=== PATIENT | male | born 1970 | race Caucasian/White ===

== ENCOUNTER 2016-12-25 01:13 | Inpatient (IN) | payer SELFPAY ==
[~2016-12-25] VITALS: Ht 180.3 cm; Wt 117.7 kg
[2016-12-25] VITALS (19 sets, daily range): BP systolic 108–168; BP diastolic 59–100
[~2016-12-25 01:13] MED LIST: ASPI325T8 PO; ATOR40TA59 PO; BUDE10.2 IH; CARV25TA2 PO; MULT1TAB52 PO; OMEP40CA5 PO
[2016-12-25 03:58] LABS: HCO3 ABG 20 mmol/L (21-28); PCO2 ABG 45 mmHg (35-46); PH ABG 7.27 (7.35-7.45); PO2 ABG 196 mmHg (75-108); SAT O2 ABG 99 % (92-99)
--- NOTE | 2016-12-25 04:00 | RAD ---
Chest AP portable at 03 30: Reason for examination: NG tube and endotracheal tube placement. Endotracheal tube is present with the tip approximately 2.6 cm above the jacquie. NG tube is present and extends into the stomach however the tip is in the region of the midesophagus. Postoperative changes are seen in the sternum. Heart and mediastinum are otherwise unremarkable. Lung martinez are clear. No acute bony abnormalities are seen. IMPRESSION: Endotracheal tube in satisfactory position. NG tube extends into the stomach however the tip of the NG tube is in the midesophagus. Recommend repositioning of NG tube. KUB: NG tube extends into the stomach however the tip of the NG tube is in the region of the midesophagus. There is no gross organomegaly. Psoas muscles are symmetric. The bowel gas pattern is nonspecific. No acute bony abnormalities are seen. IMPRESSION: NG tube is present in the stomach however the tip of the NG tube is still in the region of the mid esophagus. Repositioning is recommended. Electronically signed by: Laila Gibbons MD (12/25/2016 3:56 AM)
[2016-12-25 05:13] LABS: FIO2 ABG 60
[2016-12-25] MEDS ORDERED: ONDANSETRON PF 4 MG/2 ML VIAL. IV PRN (05:15)
[2016-12-25 05:24] LABS: BASO % 0 % (0-3); EOS % 1 % (0-3); HEMATOCRIT 44.3 % (39.0-53.0); HEMOGLOBIN 14.7 g/dL (13.0-17.5); LYMPH % 26 % (24-48); MEAN CORPUSCULAR HEMOGLOBIN 31 pg (25-35); MEAN CORPUSCULAR HGB CONC 33 g/dL (31-37); MEAN CORPUSCULAR VOLUME 93 fL (79-100); MONO % 6 % (0-9); NEUT % 66 % (31-73); PLATELET COUNT 194 x10^3/uL (140-400); RED BLOOD COUNT 4.78 x10^6/uL (4.30-5.70); RED CELL DISTRIBUTION WIDTH 14.5 % (11.5-14.5); WHITE BLOOD COUNT 11.5 x10^3/uL (4.0-11.0)
[2016-12-25] MEDS: PROPOFOL 100 ML IV PRN ×2 (05:48→09:44)
[2016-12-25 06:05] LABS: ALBUMIN 3.6 g/dL (3.4-5.0); ALBUMIN/GLOBULIN RATIO 0.9 (1.0-1.7); CALCIUM 7.6 mg/dL (8.5-10.1); CREATININE 0.7 mg/dL (0.7-1.3); POTASSIUM 3.9 mmol/L (3.5-5.1); TOTAL BILIRUBIN 0.3 mg/dL (0.2-1.0); TOTAL PROTEIN 7.4 g/dL (6.4-8.2)
--- NOTE | 2016-12-25 06:51 | RAD ---
KUB: Reason for examination: Repositioning NG tube. NG tube is present with the tip and side port within the stomach. There is no gross organomegaly. Psoas muscles are symmetric. The bowel gas pattern is nonspecific. No acute bony abnormalities are evident. IMPRESSION: NG tube with the tip and side-port within the stomach. Nonspecific bowel gas pattern. Electronically signed by: Laila Gibbons MD (12/25/2016 6:48 AM)
[2016-12-25] MEDS ORDERED: IV NORMAL SALINE 1000ML BAG 1,000 ML IV ONE (08:00)
[2016-12-25 08:03] LABS: HCO3 ABG 21 mmol/L (21-28); PCO2 ABG 43 mmHg (35-46); PO2 ABG 101 mmHg (75-108); SAT O2 ABG 97 % (92-99)
[2016-12-25 08:04] LABS: FIO2 ABG 40
[2016-12-25] MEDS ORDERED: ENOXAPARIN 40 MG/0.4 ML SYRINGE. SQ SCH (09:00)
[2016-12-25] MEDS ORDERED: MULTIVITAMIN with MINERAL TABLET. PO SCH (09:00)
[2016-12-25] MEDS ORDERED: CARVEDILOL 12.5 MG TABLET. PO SCH ×2 (09:00→17:00)
[2016-12-25] MEDS ORDERED: ASPIRIN 325 MG TABLET PO SCH (09:00)
[2016-12-25] MEDS ORDERED: FAMOTIDINE 20 MG/2 ML VIAL IVP SCH (09:00)
--- NOTE | 2016-12-25 10:56 | PDOC ---
PULMONARY PROGRESS NOTES Vitals Vital Signs Date Time Temp Pulse Resp B/P (MAP) Pulse Ox O2 Delivery O2 Flow Rate FiO2 12/25/16 09:43 66 134/74 12/25/16 09:00 100 Ventilator 12/25/16 06:00 16 12/25/16 03:00 97.6 97.6 General: Alert, No acute distress Lungs: Clear Cardiovascular: S1 Abdomen: Soft Extremities: No Edema Labs Laboratory Tests Test 12/25/16 03:19 12/25/16 05:00 12/25/16 07:47 O2 Saturation 99 % (92-99) 97 % (92-99) Arterial Blood pH 7.27 (7.35-7.45) 7.30 (7.35-7.45) Arterial Blood pCO2 at Patient Temp 45 mmHg (35-46) 43 mmHg (35-46) Arterial Blood pO2 at Patient Temp 196 mmHg (75-108) 101 mmHg (75-108) Arterial Blood HCO3 20 mmol/L (21-28) 21 mmol/L (21-28) Arterial Blood Base Excess -7 mmol/L (-3-3) -6 mmol/L (-3-3) FiO2 60 40 White Blood Count 11.5 x10^3/uL (4.0-11.0) Red Blood Count 4.78 x10^6/uL (4.30-5.70) Hemoglobin 14.7 g/dL (13.0-17.5) Hematocrit 44.3 % (39.0-53.0) Mean Corpuscular Volume 93 fL (79-100) Mean Corpuscular Hemoglobin 31 pg (25-35) Mean Corpuscular Hemoglobin Concent 33 g/dL (31-37) Red Cell Distribution Width 14.5 % (11.5-14.5) Platelet Count 194 x10^3/uL (140-400) Neutrophils (%) (Auto) 66 % (31-73) Lymphocytes (%) (Auto) 26 % (24-48) Monocytes (%) (Auto) 6 % (0-9) Eosinophils (%) (Auto) 1 % (0-3) Basophils (%) (Auto) 0 % (0-3) Neutrophils # (Auto) 7.6 x10^3uL (1.8-7.7) Lymphocytes # (Auto) 3.0 x10^3/uL (1.0-4.8) Monocytes # (Auto) 0.7 x10^3/uL (0.0-1.1) Eosinophils # (Auto) 0.2 x10^3/uL (0.0-0.7) Basophils # (Auto) 0.0 x10^3/uL (0.0-0.2) Sodium Level 141 mmol/L (136-145) Potassium Level 3.9 mmol/L (3.5-5.1) Chloride Level 107 mmol/L (98-107) Carbon Dioxide Level 21 mmol/L (21-32) Anion Gap 13 (6-14) Blood Urea Nitrogen 9 mg/dL (8-26) Creatinine 0.7 mg/dL (0.7-1.3) Estimated GFR (Cockcroft-Gault) 122.0 BUN/Creatinine Ratio 13 (6-20) Glucose Level 101 mg/dL (70-99) Lactic Acid Level 2.0 mmol/L (0.4-2.0) Calcium Level 7.6 mg/dL (8.5-10.1) Total Bilirubin 0.3 mg/dL (0.2-1.0) Aspartate Amino Transf (AST/SGOT) 43 U/L (15-37) Alanine Aminotransferase (ALT/SGPT) 40 U/L (16-63) Alkaline Phosphatase 78 U/L (46-116) Total Protein 7.4 g/dL (6.4-8.2) Albumin 3.6 g/dL (3.4-5.0) Albumin/Globulin Ratio 0.9 (1.0-1.7) Laboratory Tests Test 12/25/16 03:19 12/25/16 05:00 12/25/16 07:47 O2 Saturation 99 % (92-99) 97 % (92-99) Arterial Blood pH 7.27 (7.35-7.45) 7.30 (7.35-7.45) Arterial Blood pCO2 at Patient Temp 45 mmHg (35-46) 43 mmHg (35-46) Arterial Blood pO2 at Patient Temp 196 mmHg (75-108) 101 mmHg (75-108) Arterial Blood HCO3 20 mmol/L (21-28) 21 mmol/L (21-28) Arterial Blood Base Excess -7 mmol/L (-3-3) -6 mmol/L (-3-3) FiO2 60 40 White Blood Count 11.5 x10^3/uL (4.0-11.0) Red Blood Count 4.78 x10^6/uL (4.30-5.70) Hemoglobin 14.7 g/dL (13.0-17.5) Hematocrit 44.3 % (39.0-53.0) Mean Corpuscular Volume 93 fL (79-100) Mean Corpuscular Hemoglobin 31 pg (25-35) Mean Corpuscular Hemoglobin Concent 33 g/dL (31-37) Red Cell Distribution Width 14.5 % (11.5-14.5) Platelet Count 194 x10^3/uL (140-400) Neutrophils (%) (Auto) 66 % (31-73) Lymphocytes (%) (Auto) 26 % (24-48) Monocytes (%) (Auto) 6 % (0-9) Eosinophils (%) (Auto) 1 % (0-3) Basophils (%) (Auto) 0 % (0-3) Neutrophils # (Auto) 7.6 x10^3uL (1.8-7.7) Lymphocytes # (Auto) 3.0 x10^3/uL (1.0-4.8) Monocytes # (Auto) 0.7 x10^3/uL (0.0-1.1) Eosinophils # (Auto) 0.2 x10^3/uL (0.0-0.7) Basophils # (Auto) 0.0 x10^3/uL (0.0-0.2) Sodium Level 141 mmol/L (136-145) Potassium Level 3.9 mmol/L (3.5-5.1) Chloride Level 107 mmol/L (98-107) Carbon Dioxide Level 21 mmol/L (21-32) Anion Gap 13 (6-14) Blood Urea Nitrogen 9 mg/dL (8-26) Creatinine 0.7 mg/dL (0.7-1.3) Estimated GFR (Cockcroft-Gault) 122.0 BUN/Creatinine Ratio 13 (6-20) Glucose Level 101 mg/dL (70-99) Lactic Acid Level 2.0 mmol/L (0.4-2.0) Calcium Level 7.6 mg/dL (8.5-10.1) Total Bilirubin 0.3 mg/dL (0.2-1.0) Aspartate Amino Transf (AST/SGOT) 43 U/L (15-37) Alanine Aminotransferase (ALT/SGPT) 40 U/L (16-63) Alkaline Phosphatase 78 U/L (46-116) Total Protein 7.4 g/dL (6.4-8.2) Albumin 3.6 g/dL (3.4-5.0) Albumin/Globulin Ratio 0.9 (1.0-1.7) Medications Active Scripts Medications Dose Route/Sig Max Daily Dose Days Date Category Multivitamins (Multivitamin) 1 Each Tablet 1 Tab PO DAILY 11/13/15 Rx Atorvastatin Calcium 40 Mg Tablet 40 Mg PO HS 09/29/13 Reported Symbicort 160-4.5 Mcg Inhaler (Budesonide/Formoterol Fumarate) 10.2 Gm Hfa.aer.ad 10.2 Gm IH DAILY 09/29/13 Reported Carvedilol 25 Mg Tablet 25 Mg PO DAILY 09/29/13 Reported Omeprazole 40 Mg Capsule.dr 40 Mg PO DAILY 09/29/13 Reported Aspirin 325 Mg Tablet 325 Mg PO DAILY 09/29/13 Reported Impression . NOTE DICTATED RESP FAILURE SEC TO ETOH AND SEIZURES WILL AWAIT NEURO INPUT SUSPECT EXTUBATION IN HELADIO OLGUIN MD Dec 25, 2016 10:56
[2016-12-25] MEDS ORDERED: MULTIVIT INFUSN,ADULT 4,VIT K 10 ML, FOLIC ACID 1 MG, THIAMINE 100 MG in IV DEXTROSE 5 ... IV SCH (11:00)
--- NOTE | 2016-12-25 11:18 | PDOC1 ---
History and Physical Date of Admission Date of Admission DATE: 12/25/16 TIME: 11:08 Identification/Chief Complaint Chief Complaint seizure, etoh intox Problems: Source Source: Caregiver, Chart review History of Present Illness History of Present Illness 46 y.o male, hx obtained from chart and ER MD in [place]. Pt is intubated, no family at bedside. As per records, seized was found face on the ground, heavy etoh drinking vodka and beer 6 a day, etoh levels 189, lactate 3,2, VS and rest of labs ok, crea o,9 , LFTs mildly elevated. Did vomit, was agitated and belligerent at ER hence intubated for airway protection with the intoxication and confusion Seen in ICU, intubated, sedated, labs adelso ok ABG and CXR benign, NO ct head done at [facility], given hx SZ will do CT head -dw neuro Dw neuro, no AEDs, these are alcohol withdrawal sz Past Medical History Cardiovascular: HTN Pulmonary: Bronchitis, COPD Heme/Onc: Other Hepatobiliary: Other Psych: Addictions Endocrine: Other Past Surgical History Past Surgical History: Other Family History Family History: Heart Disease, Obesity Social History Smoke: No ALCOHOL: heavy Drugs: None Current Medications Current Medications Current Medications Famotidine (Pepcid) 20 mg BID IVP Last administered on 12/25/16 09:45; Start at 09:00 Enoxaparin Sodium (Lovenox 40mg Syringe) 40 mg Q24H SQ Last administered on 12/25 09:44; Start 12/25/16 at 09:00 Propofol 100 ml @ 0 mls/hr CONT PRN IV SEE I/O RECORD Last administered on 09:44; Start 12/25/16 at 05:15 Sodium Chloride 1,000 ml @ 100 mls/hr 1X ONCE IV Last administered on 05:49; Start 12/25/16 at 08:00; Stop 12/25/16 at 17:59 Ondansetron HCl (Zofran) 4 mg PRN Q6HRS PRN IV NAUSEA/VOMITING; Start 12/25/16 at 05:15 Lorazepam (Ativan) 2 mg PRN Q4HRS PRN IV ANXIETY / AGITATION; Start 12/25/16 at 05:15 Aspirin (Corina Aspirin) 325 mg DAILY PO Last administered on 12/25/16 09:44; Start 12/25/16 at 09:00 Atorvastatin Calcium (Lipitor) 40 mg HS PO ; Start 12/25/16 at 21:00 Carvedilol (Coreg) 25 mg DAILYWBKFT PO Last administered on 12/25/16 09:43; Start 12/25/16 at 09:00 Multivitamins (Thera M Plus) 1 tab DAILY PO Last administered on 12/25/16 09:44 ; Start 12/25/16 at 09:00 Multivitamins 10 ml/Folic Acid 1 mg/Thiamine HCl 100 mg/Dextrose/ Sodium Chloride 1,011.1 ml @ 100 mls/ hr DAILY IV ; Start 12/25/16 at 11:00 Active Scripts Active Multivitamins (Multivitamin) 1 Each Tablet 1 Tab PO DAILY Reported Atorvastatin Calcium 40 Mg Tablet 40 Mg PO HS Symbicort 160-4.5 Mcg Inhaler (Budesonide/Formoterol Fumarate) 10.2 Gm Hfa.aer.ad 10.2 Gm IH DAILY Carvedilol 25 Mg Tablet 25 Mg PO DAILY Omeprazole 40 Mg Capsule.dr 40 Mg PO DAILY Aspirin 325 Mg Tablet 325 Mg PO DAILY Allergies Allergies: Coded Allergies: Penicillins (Verified Allergy, Intermediate, 08/26/15) acetaminophen (Verified Allergy, Intermediate, 08/26/15) ROS Review of System intubated, sedated Physical Exam General: Other (sedated, intubated) HEENT: Atraumatic, PERRLA, EOMI Lungs: Clear to auscultation, Normal air movement Heart: S1S2, RRR, no thrills, no rubs, no gallops, no murmurs Cardiovascular: S1, S2 Abdomen: Normal bowel sounds, Soft, No tenderness, No hepatosplenomegaly, No masses Male Genitals Exam: normal genitalia, normal prostate Rectal Exam: not examined PELVIC: Nml ext genitalia Extremities: No clubbing, No cyanosis, No edema, Normal pulses, No tenderness/ swelling Skin: No rashes, No breakdown, No significant lesion Vitals Vitals Vital Signs Date Time Temp Pulse Resp B/P (MAP) Pulse Ox O2 Delivery O2 Flow Rate FiO2 12/25/16 10:58 100 Ventilator 12/25/16 09:43 66 134/74 12/25/16 06:00 16 12/25/16 03:00 97.6 97.6 Labs Labs Laboratory Tests Test 12/25/16 03:19 12/25/16 05:00 12/25/16 07:47 O2 Saturation 99 % (92-99) 97 % (92-99) Arterial Blood pH 7.27 (7.35-7.45) 7.30 (7.35-7.45) Arterial Blood pCO2 at Patient Temp 45 mmHg (35-46) 43 mmHg (35-46) Arterial Blood pO2 at Patient Temp 196 mmHg (75-108) 101 mmHg (75-108) Arterial Blood HCO3 20 mmol/L (21-28) 21 mmol/L (21-28) Arterial Blood Base Excess -7 mmol/L (-3-3) -6 mmol/L (-3-3) FiO2 60 40 White Blood Count 11.5 x10^3/uL (4.0-11.0) Red Blood Count 4.78 x10^6/uL (4.30-5.70) Hemoglobin 14.7 g/dL (13.0-17.5) Hematocrit 44.3 % (39.0-53.0) Mean Corpuscular Volume 93 fL (79-100) Mean Corpuscular Hemoglobin 31 pg (25-35) Mean Corpuscular Hemoglobin Concent 33 g/dL (31-37) Red Cell Distribution Width 14.5 % (11.5-14.5) Platelet Count 194 x10^3/uL (140-400) Neutrophils (%) (Auto) 66 % (31-73) Lymphocytes (%) (Auto) 26 % (24-48) Monocytes (%) (Auto) 6 % (0-9) Eosinophils (%) (Auto) 1 % (0-3) Basophils (%) (Auto) 0 % (0-3) Neutrophils # (Auto) 7.6 x10^3uL (1.8-7.7) Lymphocytes # (Auto) 3.0 x10^3/uL (1.0-4.8) Monocytes # (Auto) 0.7 x10^3/uL (0.0-1.1) Eosinophils # (Auto) 0.2 x10^3/uL (0.0-0.7) Basophils # (Auto) 0.0 x10^3/uL (0.0-0.2) Sodium Level 141 mmol/L (136-145) Potassium Level 3.9 mmol/L (3.5-5.1) Chloride Level 107 mmol/L (98-107) Carbon Dioxide Level 21 mmol/L (21-32) Anion Gap 13 (6-14) Blood Urea Nitrogen 9 mg/dL (8-26) Creatinine 0.7 mg/dL (0.7-1.3) Estimated GFR (Cockcroft-Gault) 122.0 BUN/Creatinine Ratio 13 (6-20) Glucose Level 101 mg/dL (70-99) Lactic Acid Level 2.0 mmol/L (0.4-2.0) Calcium Level 7.6 mg/dL (8.5-10.1) Total Bilirubin 0.3 mg/dL (0.2-1.0) Aspartate Amino Transf (AST/SGOT) 43 U/L (15-37) Alanine Aminotransferase (ALT/SGPT) 40 U/L (16-63) Alkaline Phosphatase 78 U/L (46-116) Total Protein 7.4 g/dL (6.4-8.2) Albumin 3.6 g/dL (3.4-5.0) Albumin/Globulin Ratio 0.9 (1.0-1.7) Laboratory Tests Test 12/25/16 03:19 12/25/16 05:00 12/25/16 07:47 O2 Saturation 99 % (92-99) 97 % (92-99) Arterial Blood pH 7.27 (7.35-7.45) 7.30 (7.35-7.45) Arterial Blood pCO2 at Patient Temp 45 mmHg (35-46) 43 mmHg (35-46) Arterial Blood pO2 at Patient Temp 196 mmHg (75-108) 101 mmHg (75-108) Arterial Blood HCO3 20 mmol/L (21-28) 21 mmol/L (21-28) Arterial Blood Base Excess -7 mmol/L (-3-3) -6 mmol/L (-3-3) FiO2 60 40 White Blood Count 11.5 x10^3/uL (4.0-11.0) Red Blood Count 4.78 x10^6/uL (4.30-5.70) Hemoglobin 14.7 g/dL (13.0-17.5) Hematocrit 44.3 % (39.0-53.0) Mean Corpuscular Volume 93 fL (79-100) Mean Corpuscular Hemoglobin 31 pg (25-35) Mean Corpuscular Hemoglobin Concent 33 g/dL (31-37) Red Cell Distribution Width 14.5 % (11.5-14.5) Platelet Count 194 x10^3/uL (140-400) Neutrophils (%) (Auto) 66 % (31-73) Lymphocytes (%) (Auto) 26 % (24-48) Monocytes (%) (Auto) 6 % (0-9) Eosinophils (%) (Auto) 1 % (0-3) Basophils (%) (Auto) 0 % (0-3) Neutrophils # (Auto) 7.6 x10^3uL (1.8-7.7) Lymphocytes # (Auto) 3.0 x10^3/uL (1.0-4.8) Monocytes # (Auto) 0.7 x10^3/uL (0.0-1.1) Eosinophils # (Auto) 0.2 x10^3/uL (0.0-0.7) Basophils # (Auto) 0.0 x10^3/uL (0.0-0.2) Sodium Level 141 mmol/L (136-145) Potassium Level 3.9 mmol/L (3.5-5.1) Chloride Level 107 mmol/L (98-107) Carbon Dioxide Level 21 mmol/L (21-32) Anion Gap 13 (6-14) Blood Urea Nitrogen 9 mg/dL (8-26) Creatinine 0.7 mg/dL (0.7-1.3) Estimated GFR (Cockcroft-Gault) 122.0 BUN/Creatinine Ratio 13 (6-20) Glucose Level 101 mg/dL (70-99) Lactic Acid Level 2.0 mmol/L (0.4-2.0) Calcium Level 7.6 mg/dL (8.5-10.1) Total Bilirubin 0.3 mg/dL (0.2-1.0) Aspartate Amino Transf (AST/SGOT) 43 U/L (15-37) Alanine Aminotransferase (ALT/SGPT) 40 U/L (16-63) Alkaline Phosphatase 78 U/L (46-116) Total Protein 7.4 g/dL (6.4-8.2) Albumin 3.6 g/dL (3.4-5.0) Albumin/Globulin Ratio 0.9 (1.0-1.7) VTE Prophylaxis Ordered VTE Prophylaxis Devices: Yes VTE Pharmacological Prophylaxi: Yes Assessment/Plan Assessment/Plan 1. Alcohol related SZ 2. Acute respi failure, intubated for airway protection given hx confusion and etoh intoxication 3. Overweight 4. Elevated lactate pOA, SIRS no sepsis 5. Fall PLAN: Admit ICU CT head dry now NEuro consulted - no AEDs DVt and pPI prophy VENt per pulmo HOme meds reviewed and renewed those needed Recheck lactate ISAAC Garcia MD Dec 25, 2016 11:17
[2016-12-25 12:07] LABS: HCO3 ABG 23 mmol/L (21-28); PCO2 ABG 44 mmHg (35-46); PH ABG 7.33 (7.35-7.45); PO2 ABG 98 mmHg (75-108); SAT O2 ABG 97 % (92-99)
[2016-12-25 12:10] LABS: FIO2 ABG 40
--- NOTE | 2016-12-25 12:12 | PDOC2 ---
NEUROLOGY CONSULT Date of Admission Date of Admission DATE: 12/25/16 TIME: 12:10 Reason for Consult Reason for Consult: Seizure Referring Physician Referring Physician: Dr. Roes PCP: Dr. Tee Source Source: Chart review, Patient History of Present Illness History of Present Illness The patient is a 46-year-old right-handed male brought to [facility] emergency department found passed out on the back porch. He was combative and required intubation. I saw him with a same presentation of alcohol intoxication, seizure , unresponsiveness requiring intubation. Imaging studies of the brain and electroencephalogram were negative, in December 2015. Patient is intubated and sedated and cannot give further history. Alcohol level was 189 in the [facility] emergency department. Imaging of the brain was not done this time. Impression: Alcoholism, alcohol intoxication, alcohol-related seizure Recommendations: Hold on anticonvulsants Agree with banana bag EEG MRI Counseled patient to stop drinking Past Medical History Cardiovascular: CAD, HTN, Other (angina, DVT) Pulmonary: COPD, Pneumonia, Other CENTRAL NERVOUS SYSTEM: Seizure (alcohol related), Other (numbness in fingers) GI: GERD Heme/Onc: Other (alcoholic fatty liver) Psych: Depression Renal/: Other (prostate nodules) Past Surgical History Past Surgical History: CABG, Hernia Repair (x4), Other (thoracic aortic aneursym repair, cardiac cath, right leg) Family History Family History: No pertinent hx Social History Social History Smokes, uses alcohol Current Medications Current Medications Current Medications Famotidine (Pepcid) 20 mg BID IVP Last administered on 12/25/16 09:45; Start at 09:00 Enoxaparin Sodium (Lovenox 40mg Syringe) 40 mg Q24H SQ Last administered on 12/25 09:44; Start 12/25/16 at 09:00 Propofol 100 ml @ 0 mls/hr CONT PRN IV SEE I/O RECORD Last administered on 09:44; Start 12/25/16 at 05:15 Sodium Chloride 1,000 ml @ 100 mls/hr 1X ONCE IV Last administered on 05:49; Start 12/25/16 at 08:00; Stop 12/25/16 at 17:59 Ondansetron HCl (Zofran) 4 mg PRN Q6HRS PRN IV NAUSEA/VOMITING; Start 12/25/16 at 05:15 Lorazepam (Ativan) 2 mg PRN Q4HRS PRN IV ANXIETY / AGITATION; Start 12/25/16 at 05:15 Aspirin (Corina Aspirin) 325 mg DAILY PO Last administered on 12/25/16 09:44; Start 12/25/16 at 09:00 Atorvastatin Calcium (Lipitor) 40 mg HS PO ; Start 12/25/16 at 21:00 Carvedilol (Coreg) 25 mg DAILYWBKFT PO Last administered on 12/25/16 09:43; Start 12/25/16 at 09:00 Multivitamins (Thera M Plus) 1 tab DAILY PO Last administered on 12/25/16 09:44 ; Start 12/25/16 at 09:00 Multivitamins 10 ml/Folic Acid 1 mg/Thiamine HCl 100 mg/Dextrose/ Sodium Chloride 1,011.1 ml @ 100 mls/ hr DAILY IV ; Start 12/25/16 at 11:00 Active Scripts Active Multivitamins (Multivitamin) 1 Each Tablet 1 Tab PO DAILY Reported Atorvastatin Calcium 40 Mg Tablet 40 Mg PO HS Symbicort 160-4.5 Mcg Inhaler (Budesonide/Formoterol Fumarate) 10.2 Gm Hfa.aer.ad 10.2 Gm IH DAILY Carvedilol 25 Mg Tablet 25 Mg PO DAILY Omeprazole 40 Mg Capsule.dr 40 Mg PO DAILY Aspirin 325 Mg Tablet 325 Mg PO DAILY Allergies Allergies: Coded Allergies: Penicillins (Verified Allergy, Intermediate, 08/26/15) acetaminophen (Verified Allergy, Intermediate, 08/26/15) ROS Review of System Unobtainable Physical Exam Physical Examination PHYSICAL EXAMINATION: Vital signs: see above. General appearance: intubated and sedation in the ICU HEENT: Normocephalic and nontraumatic. Eyes, nose, ears, and throat are unremarkable. Neck is supple. No lymphadenopathy. No bruits are heard over the carotid artery. No crepitus. NEUROLOGICAL EXAMINATION: The patient is intubated and sedated. Pupils do react to light. Reflexes are 1+ with silent plantar responses. He does not move to deep pain. Vitals VITALS Vital Signs Date Time Temp Pulse Resp B/P (MAP) Pulse Ox O2 Delivery O2 Flow Rate FiO2 12/25/16 11:51 100 Ventilator 12/25/16 09:43 66 134/74 12/25/16 06:00 16 12/25/16 03:00 97.6 97.6 Labs Labs Laboratory Tests Test 12/25/16 03:19 12/25/16 05:00 12/25/16 07:47 O2 Saturation 99 % (92-99) 97 % (92-99) Arterial Blood pH 7.27 (7.35-7.45) 7.30 (7.35-7.45) Arterial Blood pCO2 at Patient Temp 45 mmHg (35-46) 43 mmHg (35-46) Arterial Blood pO2 at Patient Temp 196 mmHg (75-108) 101 mmHg (75-108) Arterial Blood HCO3 20 mmol/L (21-28) 21 mmol/L (21-28) Arterial Blood Base Excess -7 mmol/L (-3-3) -6 mmol/L (-3-3) FiO2 60 40 White Blood Count 11.5 x10^3/uL (4.0-11.0) Red Blood Count 4.78 x10^6/uL (4.30-5.70) Hemoglobin 14.7 g/dL (13.0-17.5) Hematocrit 44.3 % (39.0-53.0) Mean Corpuscular Volume 93 fL (79-100) Mean Corpuscular Hemoglobin 31 pg (25-35) Mean Corpuscular Hemoglobin Concent 33 g/dL (31-37) Red Cell Distribution Width 14.5 % (11.5-14.5) Platelet Count 194 x10^3/uL (140-400) Neutrophils (%) (Auto) 66 % (31-73) Lymphocytes (%) (Auto) 26 % (24-48) Monocytes (%) (Auto) 6 % (0-9) Eosinophils (%) (Auto) 1 % (0-3) Basophils (%) (Auto) 0 % (0-3) Neutrophils # (Auto) 7.6 x10^3uL (1.8-7.7) Lymphocytes # (Auto) 3.0 x10^3/uL (1.0-4.8) Monocytes # (Auto) 0.7 x10^3/uL (0.0-1.1) Eosinophils # (Auto) 0.2 x10^3/uL (0.0-0.7) Basophils # (Auto) 0.0 x10^3/uL (0.0-0.2) Sodium Level 141 mmol/L (136-145) Potassium Level 3.9 mmol/L (3.5-5.1) Chloride Level 107 mmol/L (98-107) Carbon Dioxide Level 21 mmol/L (21-32) Anion Gap 13 (6-14) Blood Urea Nitrogen 9 mg/dL (8-26) Creatinine 0.7 mg/dL (0.7-1.3) Estimated GFR (Cockcroft-Gault) 122.0 BUN/Creatinine Ratio 13 (6-20) Glucose Level 101 mg/dL (70-99) Lactic Acid Level 2.0 mmol/L (0.4-2.0) Calcium Level 7.6 mg/dL (8.5-10.1) Total Bilirubin 0.3 mg/dL (0.2-1.0) Aspartate Amino Transf (AST/SGOT) 43 U/L (15-37) Alanine Aminotransferase (ALT/SGPT) 40 U/L (16-63) Alkaline Phosphatase 78 U/L (46-116) Total Protein 7.4 g/dL (6.4-8.2) Albumin 3.6 g/dL (3.4-5.0) Albumin/Globulin Ratio 0.9 (1.0-1.7) Laboratory Tests Test 12/25/16 03:19 12/25/16 05:00 12/25/16 07:47 O2 Saturation 99 % (92-99) 97 % (92-99) Arterial Blood pH 7.27 (7.35-7.45) 7.30 (7.35-7.45) Arterial Blood pCO2 at Patient Temp 45 mmHg (35-46) 43 mmHg (35-46) Arterial Blood pO2 at Patient Temp 196 mmHg (75-108) 101 mmHg (75-108) Arterial Blood HCO3 20 mmol/L (21-28) 21 mmol/L (21-28) Arterial Blood Base Excess -7 mmol/L (-3-3) -6 mmol/L (-3-3) FiO2 60 40 White Blood Count 11.5 x10^3/uL (4.0-11.0) Red Blood Count 4.78 x10^6/uL (4.30-5.70) Hemoglobin 14.7 g/dL (13.0-17.5) Hematocrit 44.3 % (39.0-53.0) Mean Corpuscular Volume 93 fL (79-100) Mean Corpuscular Hemoglobin 31 pg (25-35) Mean Corpuscular Hemoglobin Concent 33 g/dL (31-37) Red Cell Distribution Width 14.5 % (11.5-14.5) Platelet Count 194 x10^3/uL (140-400) Neutrophils (%) (Auto) 66 % (31-73) Lymphocytes (%) (Auto) 26 % (24-48) Monocytes (%) (Auto) 6 % (0-9) Eosinophils (%) (Auto) 1 % (0-3) Basophils (%) (Auto) 0 % (0-3) Neutrophils # (Auto) 7.6 x10^3uL (1.8-7.7) Lymphocytes # (Auto) 3.0 x10^3/uL (1.0-4.8) Monocytes # (Auto) 0.7 x10^3/uL (0.0-1.1) Eosinophils # (Auto) 0.2 x10^3/uL (0.0-0.7) Basophils # (Auto) 0.0 x10^3/uL (0.0-0.2) Sodium Level 141 mmol/L (136-145) Potassium Level 3.9 mmol/L (3.5-5.1) Chloride Level 107 mmol/L (98-107) Carbon Dioxide Level 21 mmol/L (21-32) Anion Gap 13 (6-14) Blood Urea Nitrogen 9 mg/dL (8-26) Creatinine 0.7 mg/dL (0.7-1.3) Estimated GFR (Cockcroft-Gault) 122.0 BUN/Creatinine Ratio 13 (6-20) Glucose Level 101 mg/dL (70-99) Lactic Acid Level 2.0 mmol/L (0.4-2.0) Calcium Level 7.6 mg/dL (8.5-10.1) Total Bilirubin 0.3 mg/dL (0.2-1.0) Aspartate Amino Transf (AST/SGOT) 43 U/L (15-37) Alanine Aminotransferase (ALT/SGPT) 40 U/L (16-63) Alkaline Phosphatase 78 U/L (46-116) Total Protein 7.4 g/dL (6.4-8.2) Albumin 3.6 g/dL (3.4-5.0) Albumin/Globulin Ratio 0.9 (1.0-1.7) Images Images Brain MRI 01/14/16: IMPRESSION 1. There is no evidence of acute infarct or intracranial mass effect. Very small focus of decreased signal on the gradient echo sequence of left frontal white matter may be due to site of old micro hemorrhage or cavernous malformation. 2. There is paranasal sinus mucosal thickening as stated greatest of the ethmoid air cells and sphenoid sinus. There is minimal mild fluid and thickening of mastoid air cells greater on the right. EEG 01/18/16: IMPRESSION: This electroencephalogram with the patient awake and asleep is within normal limits. There is no focal, paroxysmal, or epileptiform activity. 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 Recommendation: Agree with head CT as there was a possible head injury as he was found down on the ground. Otherwise no need for repeating neurological workup I do not see a role for anticonvulsants in a person who has seizures soley related to his alcohol abuse. Alcohol withdrawal protocol. Thank you for letting me help with the patient's care. ROXANA PORTER MD Dec 25, 2016 12:12
[2016-12-25] MEDS ORDERED: cloNIDine HCL 0.1 MG TABLET PO PRN (12:30)
[2016-12-25] MEDS ORDERED: diphenhydrAMINE 50 MG/ML VIAL IVP PRN (12:30)
[2016-12-25] MEDS ORDERED: HALOPERIDOL LACTATE 5 MG/ML VIAL. IVP PRN (12:30)
[2016-12-25] MEDS ORDERED: chlordiazePOXIDE HCL 25 MG CAPSULE PO PRN (12:30)
[2016-12-25] MEDS ORDERED: MULTIVIT INFUSN,ADULT 4,VIT K 10 ML, THIAMINE 100 MG, FOLIC ACID 1 MG in IV NORMAL SALI... IV SCH (13:00)
--- NOTE | 2016-12-25 15:59 | RAD ---
CT of the head without contrast, 12/25/2016: History: Seizure, neck pain The ventricles are within normal limits in size. There is no shift of the midline structures. There is no evidence of acute intracranial hemorrhage or mass effect. There is mild mucosal thickening in the paranasal sinuses bilaterally. IMPRESSION: No acute intracranial abnormality is detected. CT of the cervical spine without contrast, 12/25/2016: Noncontrast scans were obtained with multiplanar reconstructions produced. Artifacts degrade image quality in the lower cervical region. No acute fracture or dislocation is identified. There is mild disc space narrowing and marginal spurring at several levels in the lower cervical spine, most prominent at C5-6. There is mild associated left foraminal encroachment at that level. No high-grade central spinal stenosis is evident. IMPRESSION: 1. Mild degenerative change. 2. No acute bony abnormality is detected. PQRS Compliance Statement: One or more of the following individualized dose reduction techniques were utilized for this examination: 1. Automated exposure control 2. Adjustment of the mA and/or kV according to patient size 3. Use of iterative reconstruction technique
[2016-12-25] MEDS ORDERED: ATORVASTATIN CALCIUM 40 MG TABLET. PO SCH (21:00)
--- NOTE | 2016-12-26 01:30 | CONS ---
DATE OF CONSULTATION: 12/25/2016 ATTENDING PHYSICIAN: Dr. Sharita Rose. REASON FOR CONSULTATION: The patient is seen in pulmonary consultation at the request of Dr. Rose for vent management. HISTORY OF PRESENT ILLNESS: The patient is a 46-year-old male with a history of alcoholism, previous alcohol withdrawal seizures, coronary artery disease, hypertension, presented with sudden onset of seizure at home after drinking alcohol. It is unclear exactly how long he had been seized and the patient was found face down, still awake and conscious, but confused. Denied initial head injury. I reviewed the [facility] medical records. The patient apparently had been drinking heavily. The patient was intubated and transferred to [facility]. I was asked to manage his care. PAST MEDICAL HISTORY: As indicated above, alcoholism, alcohol-withdrawal seizures, coronary artery disease status post coronary artery bypass grafting, COPD, gastroesophageal reflux, and renal disease. SOCIAL HISTORY: The patient smokes on daily basis, has also history of marijuana use along with heavy alcohol abuse. REVIEW OF SYSTEMS: Unobtainable secondary to the patient's condition. CURRENT MEDICATION: List was reviewed please see the MRAD. PHYSICAL EXAMINATION: GENERAL: The patient was sedated with Diprivan. Hemodynamically, he has been stable. HEENT: Eyes, the sclerae was nonicteric. NECK: Jugular venous distention was not elevated. No lymphadenopathy. CHEST: Full expansion. LUNGS: Adequate airway flow, no wheezes. CARDIOVASCULAR: Regular rate and rhythm with S1, S2, no S3. ABDOMEN: Soft, nontender, nondistended. EXTREMITIES: No clubbing, cyanosis or edema. NEUROLOGIC: The patient was sedated. LABORATORY DATA: Arterial blood gas; pH of 7.30, PaCO2 of 43, pO2 101. Hemoglobin was noted and hematocrit was noted. White count was slightly elevated. Electrolytes were noted. BUN and creatinine were normal. AST was elevated. Chest x-ray revealed proper position of the endotracheal tube. There were some postoperative changes, otherwise lung martinez were clear. IMPRESSION: 1. Acute respiratory failure secondary to alcohol withdrawal seizures. 2. Alcoholic intoxication. 3. History of alcohol withdrawal seizures. 4. Coronary artery disease status post coronary artery bypass grafting. 5. Chronic obstructive pulmonary disease. 6. Polysubstance use including marijuana. 7. Tobacco dependence. PLAN: 1. We will continue mechanical support, await Neurology input. 2. Suspect extubation in the a.m. 3. DVT and GI prophylaxis. 3. Alcohol withdrawal precaution. I do appreciate the privilege in sharing in the patient's care. Total cumulative critical care time of 35 minutes. HELADIO MCKEON MD DR: HENRY/ruba JOB#: [id number] / [id number]
[2016-12-31] MEDS ORDERED: FOLIC ACID 1 MG TABLET. PO SCH (09:00)
== END 2016-12-25 15:45 | disposition left against medical advice (07) | DRG 208 ==
LOC: 1 WEST ICU 02:43
PROVIDERS: ADMIT Internal Medicine; ATTEND Internal Medicine
PROC: 5A1935Z Respiratory Ventilation, Less than 24 Consecutive Hours (ICD-10-PCS; principal; 2016-12-25)
PROC: 0BH18EZ Insertion of Endotracheal Airway into Trachea, Via Natural or Artificial Opening Endoscopic (ICD-10-PCS; 2016-12-25)
DX: J96.00 Acute respiratory failure, unspecified whether with hypoxia or hypercapnia (principal); F10.239 Alcohol dependence with withdrawal, unspecified; G40.89 Other seizures; R65.10 Systemic inflammatory response syndrome (SIRS) of non-infectious origin without acute organ dysfunction; F10.229 Alcohol dependence with intoxication, unspecified; I10 Essential (primary) hypertension; J44.9 Chronic obstructive pulmonary disease, unspecified; I25.10 Atherosclerotic heart disease of native coronary artery without angina pectoris; K21.9 Gastro-esophageal reflux disease without esophagitis; F17.200 Nicotine dependence, unspecified, uncomplicated; E66.3 Overweight; Z53.21 Procedure and treatment not carried out due to patient leaving prior to being seen by health care provider; F41.9 Anxiety disorder, unspecified; F32.9 Major depressive disorder, single episode, unspecified; F12.90 Cannabis use, unspecified, uncomplicated; K70.0 Alcoholic fatty liver; Y90.6 Blood alcohol level of 120-199 mg/100 ml; N28.9 Disorder of kidney and ureter, unspecified; Z79.899 Other long term (current) drug therapy; Z79.1 Long term (current) use of non-steroidal anti-inflammatories (NSAID); Z79.2 Long term (current) use of antibiotics; Z95.1 Presence of aortocoronary bypass graft; Z86.718 Personal history of other venous thrombosis and embolism; Z87.01 Personal history of pneumonia (recurrent); Z88.0 Allergy status to penicillin; Z88.6 Allergy status to analgesic agent; Z68.36 Body mass index [BMI] 36.0-36.9, adult; Z82.49 Family history of ischemic heart disease and other diseases of the circulatory system; Z84.89 Family history of other specified conditions
CPT/HCPCS: 36415; 36600; 70450; 71010; 72125; 74000; 80053; 82805; 83605; 85027; 87641; 94002; 94003; J1650; J2704; J7030; S0028